=== PATIENT | male | born 1965 | race American Indian/Alaskan Native ===

== ENCOUNTER 2025-01-15 10:15 | Emergency (ER) | payer MEDICAID, SELFPAY ==
[2025-01-15 10:20] VITALS: BMI 22.2
--- NOTE | 2025-01-15 10:26 | PC.NURSE ---
[facility] CATH PLACED. 800ML OUTPUT NOTED. LEG BAG PLACED PER [employer] INFORMATION SPECIALIST. PT INSTRUCTED ON HOW TO USE LEG BAG AT HOME. PT HAS FOLLOW UP WITH UROLOGIST AT THE END OF THIS MONTH.
[2025-01-15 10:39] VITALS: BP 214/141; BP 215/130; PULSE 67; RESP 19; TEMP 37.2; O2SAT 98
[2025-01-15 10:52] LABS: Collection Type, Urine Clean Catch
--- NOTE | 2025-01-15 10:53 | EKG_ITS ---
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
--- NOTE | 2025-01-15 11:05 | PD.EDRME ---
Rapid Medical Screening Exam RME Arrival date/time: 01/15/25 10:15 59-year-old male with no known medical history presents to the emergency room with a chief complaint of unable to void x 3 hours. I have greeted and performed a focused initial assessment of this patient. A comprehensive ED assessment and evaluation of the patient, analysis of all test results, and completion of the medical decision making process will be conducted by additional ED providers. Chief Complaint: Urogenital-Male Time Seen by Provider: 01/15/25 10:23 Vital signs: Vital Signs Temperature 98.9 F 01/15/25 10:39 Pulse Rate 67 01/15/25 10:39 Respiratory Rate 19 01/15/25 10:39 Blood Pressure 215/130 H 01/15/25 10:39 Pulse Oximetry (%) 98 01/15/25 10:39 Oxygen Delivery Method Room Air 01/15/25 10:39 Vital signs reviewed by provider: Yes
[2025-01-15 11:16] LABS: Basophils # (Auto) 0.1 Thou/mm3 (0.0-0.2); Basophils % (Auto) 1 % (0-2.5); Eosinophils # (Auto) 0.1 Thou/mm3 (0.0-0.5); Eosinophils % (Auto) 1 % (0-10); Hematocrit 46.5 % (41.0-53.0); Hemoglobin 16.9 g/dL (13.5-16.0); Immature Granulocytes % (Auto) 0 % (0-0); Immature Granulocytes Auto 0.04 Thou/mm3 (0.00-0.00); Lymphocytes # (Auto) 1.2 Thou/mm3 (1.0-4.8); Lymphocytes % (Auto) 12 % (10-50); Mean Corpuscular HGB Conc 36.3 g/dl (31.0-37.0); Mean Corpuscular Hemoglobin 30.8 pg (25.0-35.0); Mean Corpuscular Volume 85 fL (80-100); Monocytes # (Auto) 0.6 Thou/mm3 (0.0-0.8); Monocytes % (Auto) 6 % (0-12); Neutrophils # (Auto) 7.7 Thou/mm3 (1.8-7.7); Neutrophils % (Auto) 81 % (37-80); Nucleated Red Blood Cell % 0 /100 WBC (0); Platelet Count 251 Thou/mm3 (140-440); RDW Standard Deviation 37.1 fL (35.1-43.9); Red Blood Count 5.49 Miln/mm3 (4.50-5.90); White Blood Count 9.6 Thou/mm3 (3.8-10.6)
[2025-01-15 11:30] LABS: Bilirubin,Urine Negative (Negative); Blood,Urine 2+ (Negative); Color,Urine Colorless (Lt Yel-Yel); Glucose, Urine Negative (Negative); Ketones,Urine Negative (Negative); Leukocyte Esterase,Urine Negative (Negative); Nitrite,Urine Negative (Negative); Protein,Urine Trace (Neg - Trace); RBC,Urine 57 /hpf (0-3); Specific Gravity,Urine 1.009 (1.001-1.035); Squamous Epithelial Cell,Urine < 1 /hpf (0-5); Urobilinogen,Urine Negative mg/dL (0.0-1.0); WBC,Urine 1 /hpf (0-5)
[2025-01-15 11:39] LABS: B-Type Natriuretic Peptide 70 pg/mL (0-100)
[2025-01-15 11:40] LABS: Alanine Aminotransferase 18 U/L (10-49); Albumin, Serum 4.6 gm/dL (3.4-4.8); Albumin/Globulin Ratio 1.6 (1.2-2.2); Alkaline Phosphatase 105 U/L (46-116); Anion Gap 8 (7-16); Aspartate Amino Transferase 29 U/L (0-34); BUN/Creatinine Ratio 8 Ratio (12-20); Bilirubin,Total 1.6 mg/dL (0.3-1.2); Blood Urea Nitrogen 11 mg/dL (9-23); Calcium 9.7 mg/dL (8.3-10.6); Calcium (Corrected) 9.7 mg/dL (8.5-10.1); Carbon Dioxide 25.8 mMol/L (20.0-31.0); Chloride 101 mMol/L (98-107); Creatinine (Component) 1.3 mg/dL (0.6-1.3); Estimated Creatinine Clearance 60.1 mL/min (>60); Globulin 2.9 gm/dL (2.3-3.5); Glucose 109 mg/dL (74-106); Osmolality,Calculated 270 (275-295); Potassium 3.7 mMol/L (3.4-5.1); Sodium 135 mMol/L (136-145); Total Protein 7.5 gm/dL (5.7-8.2); Troponin I < 0.020 ng/mL (0.0-0.045); eGFR > 60 See Note
[2025-01-15 11:49] LABS: Clarity,Urine Hazy (Clear/Hazy); Sperm,Urine Present
[2025-01-15 12:31] LABS: Partial Thromboplastin Time 27.2 Seconds (22.0-36.0)
--- NOTE | 2025-01-15 16:01 | PC.NURSE ---
staff called out for patient. no answer x 1 at 1559. checked outside and lobby.
--- NOTE | 2025-01-15 16:57 | PC.NURSE ---
NO ANSWER IN LOBBY X2
== END 2025-01-15 17:43 | disposition left against medical advice (07) ==
PROVIDERS: Nurse Practitioner Family; Emergency Provider Emergency Medicine
DX: R33.9 Retention of urine, unspecified (principal); R94.31 Abnormal electrocardiogram [ECG] [EKG]; Z53.29 Procedure and treatment not carried out because of patient's decision for other reasons
CPT/HCPCS: 51702; 36415; 80053; 80307; 81001; 83735; 83880; 84484; 85025; 85610; 85730; 87086; 93005; 99283; A4314

== ENCOUNTER 2025-02-03 10:12 | Emergency (ER) | payer MEDICAID, SELFPAY ==
[2025-02-03 10:27] VITALS: BMI 23.6
[2025-02-03 10:28] VITALS: PULSE 76; RESP 20; TEMP 36.6; O2SAT 98
--- NOTE | 2025-02-03 10:33 | XR_ITS ---
Examination: CT abdomen and pelvis without contrast. Coronal 3-D reconstructions. Sagittal 2-D reconstructions. Date and time of exam: February 03, 2025 1131 hrs. Indications: Unable to urinate beginning this morning CTDI: vol (mGy): 5.55 DLP: (mGycm): 292 Technique: Axial images of the abdomen have been obtained, 3 mm slice thickness Intravenous contrast material has not been administered. Low dose protocols were performed. One or more of the following dose reduction techniques were used; automated exposure control, adjustment of the mA and/or KV according to patient size, use of iterative reconstruction technique. Findings: No focal liver or splenic lesions No gallstones No pancreatic mass No renal or ureteral calculi, no hydronephrosis Aorta normal size Normal appendix No bowel obstruction Marked prostatomegaly with marked thickening of urinary bladder wall likely related to outflow obstruction from the prostatomegaly Urinary Mcneal catheter satisfactory position Impression: Marked prostatomegaly is producing lower urinary tract outflow obstruction
--- NOTE | 2025-02-03 10:38 | PD.EDRME ---
Rapid Medical Screening Exam RME Arrival date/time: 02/03/25 10:12 59-year-old male presents the emergency department today for complaints of urinary retention Chief Complaint: Urogenital-Male Time Seen by Provider: 02/03/25 10:16 Vital signs: Vital Signs Temperature 97.8 F 02/03/25 10:28 Pulse Rate 76 02/03/25 10:28 Respiratory Rate 20 02/03/25 10:28 Pulse Oximetry (%) 98 02/03/25 10:28 Oxygen Delivery Method Room Air 02/03/25 10:28
--- NOTE | 2025-02-03 10:49 | XR_ITS ---
Examination: Shoulder,right, 3 views Technique: Shoulder AP internal rotation, AP external rotation, Y view shoulder, 3 views Exam date and time :February 03, 2025 1253 hrs. Indications: Right shoulder pain today Findings: Moderate osteoarthritis glenohumeral joint No fracture or shoulder dislocation Impression: Moderate osteoarthritis glenohumeral joint
[2025-02-03 10:57] VITALS: BP 166/97
[2025-02-03 11:11] LABS: Collection Type, Urine Clean Catch; Squamous Epithelial Cell,Urine 0 /hpf (0-5)
[2025-02-03 11:24] LABS: Basophils # (Auto) 0.1 Thou/mm3 (0.0-0.2); Basophils % (Auto) 1 % (0-2.5); Eosinophils # (Auto) 0.1 Thou/mm3 (0.0-0.5); Eosinophils % (Auto) 1 % (0-10); Hematocrit 41.7 % (41.0-53.0); Hemoglobin 15.1 g/dL (13.5-16.0); Immature Granulocytes % (Auto) 0 % (0-0); Immature Granulocytes Auto 0.04 Thou/mm3 (0.00-0.00); Lymphocytes # (Auto) 1.2 Thou/mm3 (1.0-4.8); Lymphocytes % (Auto) 13 % (10-50); Mean Corpuscular HGB Conc 36.2 g/dl (31.0-37.0); Mean Corpuscular Hemoglobin 30.3 pg (25.0-35.0); Mean Corpuscular Volume 84 fL (80-100); Monocytes # (Auto) 0.6 Thou/mm3 (0.0-0.8); Monocytes % (Auto) 6 % (0-12); Neutrophils # (Auto) 7.5 Thou/mm3 (1.8-7.7); Neutrophils % (Auto) 79 % (37-80); Nucleated Red Blood Cell % 0 /100 WBC (0); Platelet Count 373 Thou/mm3 (140-440); RDW Standard Deviation 37.2 fL (35.1-43.9); Red Blood Count 4.98 Miln/mm3 (4.50-5.90); White Blood Count 9.5 Thou/mm3 (3.8-10.6)
[2025-02-03 11:27] LABS: Bacteria,Urine 3+; Bilirubin,Urine Negative (Negative); Blood,Urine 2+ (Negative); Clarity,Urine Turbid (Clear/Hazy); Color,Urine Lt-Yellow (Lt Yel-Yel); Glucose, Urine Negative (Negative); Ketones,Urine Negative (Negative); Leukocyte Esterase,Urine Positive (Negative); Nitrite,Urine Positive (Negative); Protein,Urine Trace (Neg - Trace); RBC,Urine 82 /hpf (0-3); Urobilinogen,Urine Negative mg/dL (0.0-1.0); WBC,Urine 362 /hpf (0-5)
[2025-02-03 11:28] LABS: Culture Indicated,Urine Yes
[2025-02-03 11:43] LABS: Alanine Aminotransferase 24 U/L (10-49); Albumin, Serum 4.3 gm/dL (3.4-4.8); Albumin/Globulin Ratio 1.7 (1.2-2.2); Alkaline Phosphatase 105 U/L (46-116); Anion Gap 9 (7-16); BUN/Creatinine Ratio 15 Ratio (12-20); Bilirubin,Total 1.2 mg/dL (0.3-1.2); Blood Urea Nitrogen 18 mg/dL (9-23); Calcium 9.6 mg/dL (8.3-10.6); Calcium (Corrected) 9.6 mg/dL (8.5-10.1); Carbon Dioxide 28.1 mMol/L (20.0-31.0); Chloride 105 mMol/L (98-107); Creatinine (Component) 1.2 mg/dL (0.6-1.3); Estimated Creatinine Clearance 65.5 mL/min (>60); Globulin 2.6 gm/dL (2.3-3.5); Glucose 101 mg/dL (74-106); Osmolality,Calculated 285 (275-295); Potassium 4.1 mMol/L (3.4-5.1); Sodium 142 mMol/L (136-145); Total Protein 6.9 gm/dL (5.7-8.2); eGFR > 60 See Note
[2025-02-03 14:33] VITALS: BP 153/90; PULSE 70; RESP 16; TEMP 36.4; O2SAT 99
--- NOTE | 2025-02-03 15:11 | EDNOTE_ITS ---
ED Male Genitalurinary RME/HPI General Chief complaint: Urogenital-Male Stated complaint: URINARY RETENTION Time Seen by Provider: 02/03/25 10:16 Arrival date/time: 02/03/25 10:12 This is a 67-year-old male that comes in with complaints of urinary retention. Patient states this happened before in the past. Patient states he had a catheter for a few days and then started having bleeding in the catheter. Patient states at that time he had his catheter removed and he did not have any more problems. Patient does see Dr. Francis. He reports that he has an appointment next week. Patient has a history of enlarged prostate in the past. RME / HPI RME / HPI Narrative: 02/03/25 10:12 59-year-old male presents the emergency department today for complaints of urinary retention Related Data Home Medications ?Medication ?Instructions ?Recorded ?Confirmed tamsulosin 0.4 mg capsule 0.4 mg PO QHS 04/13/2405/18 Previous Rx's ?Medication ?Instructions ?Recorded cephalexin 500 mg capsule 500 mg PO TID 7 days #21 cap s 02/03/25 cyclobenzaprine 10 mg tablet 10 mg PO BID #14 tabs 03/23 ibuprofen 800 mg tablet 800 mg PO Q6H PRN pain #10 t abs 02/03/25 tamsulosin 0.4 mg capsule (Flomax) 0.4 mg PO QDAY #14 caps 02/03/25 Allergies Allergy/AdvReac Type Severity Reaction Status Date / Time Penicillins Allergy Mild Rash Verified 01/15/25 10:19 Course Orders Category Date Time Status Mcneal [Urinary Catheter] NOW Care 02/03/25 10:32 Active Mcneal to Leg Bag NOW Care 02/03/25 10:32 Ordered Mcneal to Leg Bag Routine Care 02/03/25 15:[address] abdomen pelvis wo con Stat Exams 02/03/25 10:33 Completed XR shoulder RT min 2V Stat Exams 02/03/25 10:49 Completed CBC Stat Lab 02/03/25 11:12 Completed Comprehensive Metabolic Panel Stat Lab 02/03/25 11:12 Completed UA, C/S IF [Urinalysis, C/S if Indicated] Stat Lab 02/03/25 11:05 Completed Urine Culture Stat Lab 02/03/25 11:05 Received CYCLObenzaPRINE [Flexeril] Med 02/03/25 15:22 Discontinued 10 mg PO X1 ONE HYDROcodone*/APAP 5/325 [[place] 5/325] Med 02/03/25 15:20 Discontinued 1 tab PO X1 ONE Ketorolac Inj [Toradol Inj] Med 02/03/25 15:20 Discontinued 60 mg IM X1 ONE Ondansetron Odt [Zofran Odt] Med 02/03/25 15:22 Discontinued 4 mg PO X1 ONE cefTRIAXone [Rocephin] 1,000 mg Med 02/03/25 15:20 Discontinued Lidocaine 1% 20 ml [Xylocaine 1% 20 ML] 2.1 ml IM X1 Vital Signs Vital signs: Vital Signs Temperature 97.8 F 02/03/25 10:28 Pulse Rate 76 02/03/25 10:28 Respiratory Rate 20 02/03/25 10:28 Pulse Oximetry (%) 98 02/03/25 10:28 Oxygen Delivery Method Room Air 02/03/25 10:28 Urogenital - Male MDM Narrative MDM Narrative:: ct abdomen and pelvis: Findings: No focal liver or splenic lesions No gallstones No pancreatic mass No renal or ureteral calculi, no hydronephrosis Aorta normal size Normal appendix No bowel obstruction Marked prostatomegaly with marked thickening of urinary bladder wall likely related to outflow obstruction from the prostatomegaly Urinary Mcneal catheter satisfactory position Impression: Marked prostatomegaly is producing lower urinary tract outflow obstruction Findings: Moderate osteoarthritis glenohumeral joint No fracture or shoulder dislocation Impression: Moderate osteoarthritis glenohumeral joint Labs reviewed CBC unremarkable BMP unremarkable urine shows. urine positive for nitrites, leukocyte Estrace positive, positive RBCs, positive white blood cells,. Will send a urine culture. Spoke to patient at length. Discussed CT results. Patient already appears to have a follow-up appointment with Dr. Francis patient feels a lot better. Will transfer patient to leg bag. Patient also complains of right shoulder pain. X- ray of the shoulder shows no acute fracture. And some osteoarthritis. I spoke to patient that I will give him something for pain but if continued pain he may need further studies such as an MRI. Patient verbalizes understanding. Patient told to follow-up with primary provider in 1 to 2 days. Come back to the emergency room if symptoms change or worsen. Medications / Prescriptions Medication administrations:: Medication Administration History Discontinued Medications Hydrocodone Bitart/Acetaminophen (Hydrocodone/Apap 5/325 Tablet) 1 tab PO X1 ONE Stop: 02/03/25 15:21 Ceftriaxone Sodium 1,000 mg/ (Lidocaine HCl 2.1 ml) 0 mg IM X1 ONE Stop: 02/03/25 15:21 Cyclobenzaprine HCl (Cyclobenzaprine 5 Mg Tablet) 10 mg PO X1 ONE Stop: 02/03/25 15:23 Ketorolac Tromethamine (Ketorolac Inj 60 Mg/2 Ml Vial) 60 mg IM X1 ONE Stop: 02/03/25 15:21 Ondansetron HCl (Ondansetron Odt 4 Mg Tabrap) 4 mg PO X1 ONE; Protocol Stop: 02/03/25 15:23 Discharge Plan Plan Patient Disposition: HOME (Self Care) Patient condition on transfer: Stable Prescriptions/Referrals Prescriptions/Med Rec: New cephalexin 500 mg capsule 500 mg PO TID 7 Days Qty: 21 0RF tamsulosin [Flomax] 0.4 mg capsule 0.4 mg PO QDAY Qty: 14 0RF ibuprofen 800 mg tablet 800 mg PO Q6H PRN (Reason: pain) Qty: 10 0RF cyclobenzaprine 10 mg tablet 10 mg PO BID Qty: 14 0RF No Action tamsulosin 0.4 mg capsule 0.4 mg PO QHS Referrals: No Primary/Family,Physician [Primary Care Provider] - In 1 week Problem List Clinical Impression: Urinary tract infection, Acute urinary retention, Enlarged prostate, Acute shoulder pain Patient/Caregiver Discharge Instructions Discharge Activity: activity as tolerated Education Materials: Urinary Tract Infections in Men, ED BPH (Enlarged Prostate) Additional Instructions: Follow up with primary provider in 1-2 days. Come back to ED if symptoms change or worsen. Keep scheduled appointment with urology. Print Language: Malian Stand Alone Forms: [employer] Award Info., Patient Portal Info Letter PA/ALCOHOL AND DRUG COUNSELOR Supervising Physician PA/ALCOHOL AND DRUG COUNSELOR Supervising Physician: shun
[2025-02-03] MEDS: HYDROcodone/APAP 5/325 TABLET 1 TAB PO (16:18)
[2025-02-03] MEDS: CYCLObenzaPRINE 5 MG TABLET 10 MG PO (16:18)
[2025-02-03 16:19] VITALS: BP 142/105; PULSE 85; RESP 16; TEMP 36.7; O2SAT 96
[2025-02-03] MEDS: ONDANSETRON ODT 4 MG TABRAP PO (16:20)
[2025-02-03] MEDS: KETOROLAC INJ 60 MG/2 ML VIAL IM (16:20)
[2025-02-03] MEDS: cefTRIAXone 1,000 MG, LIDOCAINE 1% 20 ML 2.1 ML IM (16:21)
[2025-02-03 17:07] VITALS: BP 164/90
--- NOTE | 2025-02-03 17:07 | PC.NURSE ---
changed peck bag to leg bag
== END 2025-02-03 17:09 | disposition home or self-care (01) ==
PROVIDERS: Nurse Practitioner Primary Care; Emergency Provider Family Medicine
DX: N40.1 Benign prostatic hyperplasia with lower urinary tract symptoms (principal); R33.8 Other retention of urine; M25.511 Pain in right shoulder
CPT/HCPCS: 51702; 36415; 73030; 74176; 80053; 81001; 85025; 87077; 87086; 87186; 96372; 99284; A4314; J0696; J1885; J3490; Q0162; A9270

== ENCOUNTER → 2025-03-16 | Outpatient (BNVA) | payer MEDICAID, SELFPAY | END | disposition home or self-care (01) | PROVIDERS: Visit Provider Urology | DX: N40.1 Benign prostatic hyperplasia with lower urinary tract symptoms (principal); N13.8 Other obstructive and reflux uropathy; N39.0 Urinary tract infection, site not specified; Z91.199 Patient's noncompliance with other medical treatment and regimen due to unspecified reason; R97.20 Elevated prostate specific antigen [PSA]; F17.210 Nicotine dependence, cigarettes, uncomplicated | CPT/HCPCS: 81003; 99212; G0463 ==

== ENCOUNTER → 2025-07-31 | Outpatient (BNVA) | payer MEDICAID, SELFPAY | END | disposition home or self-care (01) | PROVIDERS: Visit Provider Urology | DX: N40.1 Benign prostatic hyperplasia with lower urinary tract symptoms (principal); N13.8 Other obstructive and reflux uropathy; R97.20 Elevated prostate specific antigen [PSA]; Z91.199 Patient's noncompliance with other medical treatment and regimen due to unspecified reason; N39.0 Urinary tract infection, site not specified; R03.0 Elevated blood-pressure reading, without diagnosis of hypertension; F17.210 Nicotine dependence, cigarettes, uncomplicated; Z71.6 Tobacco abuse counseling | CPT/HCPCS: 81003; 99212; G0463 ==